=== PATIENT | female | born 1960 | race Caucasian/White ===

== ENCOUNTER 2017-06-25 08:50 | Outpatient (CLI) | payer BC ==
[2017-06-25 10:25] LABS: Hematocrit 39.3 % (36.0-47.0); Mean Platelet Volume 7.9 fL (7.4-10.4); Red Blood Cell (RBC) Count 3.91 mill/uL (4.20-5.40); White Blood Cell (WBC) Count 8.8 thou/uL (4.8-10.8)
[2017-06-25 10:43] LABS: Anion Gap 11 mmol/L (10-20); BUN (Urea Nitrogen) 18 mg/dL (9.8-20.1); Calc. Creatinine Clearance 0 mL/min (70-130); Calcium 9.5 mg/dL (7.8-10.44); Carbon Dioxide 30 mmol/L (22-29); Chloride 104 mmol/L (98-107); Estimated GFR-MDRD 78
--- NOTE | 2017-06-25 14:49 | EKG ---
Test Reason : Blood Pressure : / mmHG Vent. Rate : 061 BPM Atrial Rate : 061 BPM P-R Int : 132 ms QRS Dur : 084 ms QT Int : 436 ms P-R-T Axes : 081 089 083 degrees QTc Int : 438 ms Normal sinus rhythm Nonspecific ST and T wave abnormality Abnormal ECG Confirmed by MILI NG ([id number]) on 06/25/2017 2:49:01 PM Referred By: Eyad CUENCA Confirmed By:MILI NG
== END 2017-06-25 08:51 | disposition home or self-care (01) ==
LOC: LABBT 08:50
PROVIDERS: ATTEND Urology
DX: Z01.818 Encounter for other preprocedural examination (principal); N20.0 Calculus of kidney
CPT/HCPCS: 80048; 85027; 93005; 93010

== ENCOUNTER 2017-07-01 06:05 | Day surgery (SDC) | payer BC ==
[2017-06-25 09:28] VITALS: BMI 20.5
[2017-07-01] MEDS ORDERED: Fentanyl 100 MCG/2 ML VIAL ONE ×2 (06:53)
[2017-07-01] MEDS ORDERED: Midazolam HCl 2 mg/2 ml Vial ONE (06:53)
[2017-07-01] MEDS ORDERED: Promethazine HCl 25 MG/ML VIAL ONE (06:53)
[2017-07-01] MEDS ORDERED: Sodium Chloride 0.9% 100 ML ONE (07:07)
[2017-07-01] MEDS ORDERED: Iothalamate Meglumine 60% 50 ML VIAL FS ONE (07:07)
[2017-07-01] MEDS ORDERED: CEFAZOLIN 1 GM VIAL ONE ×2 (07:07→14:13)
[2017-07-01] MEDS ORDERED: Phenylephrine 10 MG/NS 250 ML 0 ML ONE (07:24)
[2017-07-01] MEDS ORDERED: Phenazopyridine HCl 97.5 MG TABLET ONE (09:35)
[2017-07-01] MEDS ORDERED: Oxybutynin 5 MG TAB ONE (09:35)
--- NOTE | 2017-07-01 13:46 | OP ---
DATE OF PROCEDURE: 07/01/2017 PREOPERATIVE DIAGNOSIS: Left ureteral and renal stones. POSTOPERATIVE DIAGNOSIS: Left ureteral and renal stones. PROCEDURES PERFORMED: Cystoscopy, left retrograde pyelogram, left ureteroscopy , left renal pyeloscopy, holmium laser lithotripsy, stone basketing and manipulation and removal, stent placement 6 x 22 double-J with string. SURGEON: Tessa Woodruff M.D. ANESTHESIA: General and LMA. SPECIMENS: Urine from the left renal pelvis as well as ureteral stone and renal stone. COMPLICATIONS: No complications. DRAIN REMAININ x 22 double-J with string. ESTIMATED BLOOD LOSS: None. INDICATIONS: The patient is a 57-year-old female who is followed in the office for stone disease and noted to have an obstructing left ureteral stone that did not make any progress, so she was set up for both ureteroscopy and shockwave lithotripsy; however, the ESWL machine was not available, so we proceeded with just ureteroscopy and renal pyeloscopy given the chronicity of obstruction. PROCEDURE IN DETAIL: The patient was brought into the room, anesthesia was then given. She was placed in supine position after achieving general anesthetic. Legs placed in lithotomy position with the left leg lower than the right leg elevated. She was prepped and draped in sterile fashion. Using a 21 Swazi cystoscope and 30-degree lens, it was traversed and the bladder inspected. Left ureteral orifice was intubated and a retrograde pyelogram performed revealing a filling defect in the lower proximal or upper mid ureter and the Pollack catheter would not advance beyond this so a regular wire was used to go beyond this area where it was then placed into the renal pelvis. The Pollack catheter could be advanced beyond the stone at this time and into the renal pelvis where the stone was removed and approximately 15 mL of clear urine was extracted and sent for specimen. Measurements were taken for a 6 x 22 stent was used, these were bent, then the wire was replaced and a dilating balloon was used, 6 cm 15 Swazi and dilated the ureteral orifice to measure 12 mmHg and then it was removed leaving the wire in place and coiling it. Then another stiff wire was placed via cystoscopy and then again the scope was broken apart, bladder drained and removed, keeping the stiff wire in, regular wire in place and then the rigid ureteroscope was placed over the stiff wire for aide in guidance up to the stone. At first, there was significant edema and I was concerned that I would not be able to pass this region without significant trauma, but with gentle manipulation and careful persistence the area of edema was then passed and up into the proximal ureter where there was normal tissue and no obvious stone so I retracted the scope partially and was able to find the stone. At this point, holmium laser lithotripsy was used to bust it up in multiple fragments, all of which were then removed in total and sent for specimen. Then, I switched over to the flexible ureteroscope and was able to get into the renal pelvis itself and attempted to go in any calices, there were only 2 that I could enter and 2 small fragments were extracted, 1 I just dropped in the ureter and then returned to the renal pelvis and the second I removed in its entirety. I was aware of a 5-6 mm stone that I did not see despite my investigation so this is likely a stone that was left remaining in the kidney itself. At this point, the flexible ureteroscope was removed in its entirety and the cystoscope was back fed over the wire after the stiff wire had been removed originally and then a 6 x 22 double-J stent was placed over the wire with good coil visualized in the renal pelvis via fluoroscopy and a good coil visualized in the bladder via cystoscopy. Scope was broken apart, bladder drained and removed carefully leaving the string intact, which was then coiled and secured to the patient's inner thigh. The patient tolerated procedure well and was then awakened and transferred to the PACU in stable condition. JESUSITA
[2017-07-01] MEDS ORDERED: Ondansetron HCl/PF 4 MG/2 ML Vial ONE (14:13)
[2017-07-01] MEDS ORDERED: ePHEDrine/0.9% NaCl/PF SYRINGE 50 mg/10 ml ONE (14:13)
[2017-07-01] MEDS ORDERED: Propofol 200 MG/20 ML VIAL ONE (14:13)
[2017-07-01] MEDS ORDERED: PHENYLEPHRINE-NS 100 MCG/ML 10 ML SYRINGE ONE (14:13)
[2017-07-01] MEDS ORDERED: Dexamethasone 20 MG/5 ML VIAL ONE (14:13)
[2017-07-01] MEDS ORDERED: Lidocaine 1% PF 5 ML VIAL ONE (14:13)
== END 2017-07-01 10:57 | disposition home or self-care (01) ==
LOC: SDC 06:05 → EEVIPCON 08:30 → SDC 10:57
PROVIDERS: ATTEND Urology
PROC: 0TF48ZZ Fragmentation in Left Kidney Pelvis, Via Natural or Artificial Opening Endoscopic (ICD-10-PCS; principal; 2017-07-01)
PROC: 0T778DZ Dilation of Left Ureter with Intraluminal Device, Via Natural or Artificial Opening Endoscopic (ICD-10-PCS; principal; 2017-07-01)
DX: N20.2 Calculus of kidney with calculus of ureter (principal); Z79.899 Other long term (current) drug therapy; Z90.49 Acquired absence of other specified parts of digestive tract; Z90.710 Acquired absence of both cervix and uterus; Z98.890 Other specified postprocedural states; Z85.038 Personal history of other malignant neoplasm of large intestine; Z87.442 Personal history of urinary calculi; Z84.1 Family history of disorders of kidney and ureter; Z82.49 Family history of ischemic heart disease and other diseases of the circulatory system
CPT/HCPCS: 76000; 82365; 87070; 87205; 88300; C1758; J0690; J1100; J2001; J2250; J2405; J2550; J2704; J3010; J7050; Q9961

== ENCOUNTER 2018-06-01 10:31 | Outpatient (CLI) | payer BC ==
--- NOTE | 2018-06-01 11:24 | RAD ---
ABDOMEN ONE VIEW: History: Follow up renal stones. FINDINGS: Several very small opacities noted over the region of the left kidney suspicious for renal calculi. P ost-surgical changes overlying the left mid and lateral abdomen. No evidence of bowel obstruction. No overt ureteral calculus. IMPRESSION: Several small left renal calculi. POS: C
== END 2018-06-01 10:32 | disposition home or self-care (01) ==
LOC: RAD 10:31
PROVIDERS: ATTEND Urology
DX: N20.0 Calculus of kidney (principal)
CPT/HCPCS: 74018

== ENCOUNTER 2018-06-18 11:22 | Outpatient (CLI) | payer BC ==
[2018-06-18 12:14] LABS: Hemoglobin 12.8 g/dL (12.0-16.0); Mean Corpuscular Hemoglobin 32.5 pg (27.0-31.0); Mean Corpuscular Volume 98.7 fL (78.0-98.0); Mean Platelet Volume 8.4 fL (7.4-10.4); Platelet Count 215 thou/uL (130-400); RBC Distribution Width 11.1 % (11.5-14.5); Red Blood Cell (RBC) Count 3.94 mill/uL (4.20-5.40); White Blood Cell (WBC) Count 7.4 thou/uL (4.8-10.8)
[2018-06-18 12:34] LABS: Anion Gap 12 mmol/L (10-20); BUN (Urea Nitrogen) 12 mg/dL (9.8-20.1); Calc. Creatinine Clearance 0 mL/min (70-130); Calcium 9.4 mg/dL (7.8-10.44); Carbon Dioxide 27 mmol/L (22-29); Chloride 106 mmol/L (98-107); Estimated GFR-MDRD 72; Glucose 106 mg/dL (70-105); Potassium 3.4 mmol/L (3.5-5.1); Sodium 142 mmol/L (136-145)
== END 2018-06-18 11:23 | disposition home or self-care (01) ==
LOC: LABBT 11:22
PROVIDERS: ATTEND Urology
DX: Z01.818 Encounter for other preprocedural examination (principal); N20.0 Calculus of kidney; E72.53 Primary hyperoxaluria
CPT/HCPCS: 80048; 81001; 85027; 93005; 93010

== ENCOUNTER 2018-06-19 12:46 | Outpatient (CLI) | payer BC ==
--- NOTE | 2018-06-19 15:56 | CT ---
CT ABDOMEN AND PELVIS WITHOUT CONTRAST 06/19/18 COMPARISON: 01/26/14. HISTORY: Left flank pain. History of kidney stones. TECHNIQUE: Multiple contiguous axial images were obtained in a CT of the abdomen and pelvis without contrast. Co kim reformats were performed. FINDINGS: There is a 4 mm calcification in the proximal aspect of the left ureter with severe left hydronephros is. Other nonobstructing calcifications are seen in the left kidney. No right sided hydronephrosis or right renal calcifications are seen. The liver, gallbladder, adrenal glands, spleen, and pancreas are unremarkable. No free air, free flui d or stranding changes are seen in the abdomen or pelvis. The uterus appears to have been removed. The patient may still have a right ovary in the right aspect of the pelvis. The large and small bowel are unremarkable. the appendix is not definitely seen. Degenerative changes are seen in the spine. The visualized inferior thorax and abdominal wall soft ti ssues are unremarkable. IMPRESSION: 1. Proximal left ureteral calcification with severe left hydronephrosis. 2. Nonobstructing additional left renal calcifications. POS: FLAQUITO
== END 2018-06-19 12:47 | disposition home or self-care (01) ==
LOC: SCSCT 12:46
PROVIDERS: ATTEND Urology
DX: N23 Unspecified renal colic (principal); N28.89 Other specified disorders of kidney and ureter; N13.30 Unspecified hydronephrosis
CPT/HCPCS: 74176

== ENCOUNTER 2018-06-23 09:11 | Day surgery (SDC) | payer BC ==
[2018-06-18 11:39] VITALS: BMI 22.2
[2018-06-23] MEDS ORDERED: CEFAZOLIN/Water 2 GM/20 ML SYRINGE ONE (10:22)
--- NOTE | 2018-06-23 11:27 | RAD ---
ABDOMEN ONE VIEW: HISTORY: Abdominal pain. Renal calculi. COMPARISON: Stone protocol CT from 06/19/2018. FINDINGS: There are multiple left-sided renal calculi. The previously noted left ureteral calculus is not defi nitively seen. IMPRESSION: Left-sided renal calculi without definite ureteral calculus. POS: FLAQUITO
[2018-06-23] MEDS ORDERED: Midazolam HCl 2 mg/2 ml Vial ONE (11:36)
[2018-06-23] MEDS ORDERED: Fentanyl 100 MCG/2 ML VIAL ONE (11:36)
[2018-06-23] MEDS ORDERED: Iothalamate Meglumine 60% 50 ML VIAL FS ONE (12:02)
[2018-06-23] MEDS ORDERED: Furosemide 20 MG/2 ML VIAL ONE (13:12)
[2018-06-23 13:16] LABS: Bilirubin Negative (Negative); Blood, Urine Large (Negative); Clarity CLOUDY (Clear); Glucose, Urine (Dipstick) Negative (Negative); Leukocyte Negative (Negative); Nitrite Negative (Negative); Protein, Urine (Dipstick) Negative (Neg-Trace); Specific Gravity, Urine 1.011 (1.002-1.036); Urobilinogen 0.2 mg/dL (0.2-1.0)
[2018-06-23 13:19] LABS: Bacteria/HPF None Seen HPF (None Seen); Hyaline Casts/LPF 4-6 HYALINE CAST LPF (0-3 Hyaline); Pathc Cast-AUWi Flag 1.01 (0-2.49); RBC/HPF GREATER THAN 50-TNTC HPF (0-3); Squamous Epithelial 0-3 HPF (0-3)
[2018-06-23] MEDS ORDERED: Acetaminophen/Codeine 30-300mg Tablet ONE (14:48)
[2018-06-23] MEDS ORDERED: ePHEDrine/0.9% NaCl/PF SYRINGE 50 mg/10 ml ONE ×2 (16:23)
[2018-06-23] MEDS ORDERED: Ondansetron HCl/PF 4 MG/2 ML Vial ONE (16:23)
[2018-06-23] MEDS ORDERED: Dexamethasone 20 MG/5 ML VIAL ONE (16:23)
[2018-06-23] MEDS ORDERED: PROPOFOL 200 MG/20 ML VIAL ONE (16:23)
[2018-06-23] MEDS ORDERED: Lidocaine 1% PF 5 ML VIAL ONE (16:23)
--- NOTE | 2018-06-24 07:53 | OP ---
DATE OF SERVICE: 06/23/2018 PREOPERATIVE DIAGNOSES: Left ureteral and left renal stones. POSTOPERATIVE DIAGNOSES: Left ureteral and left renal stones. PROCEDURES: Cystoscopy, left ureteroscopy, stone basketing, stent placement, 6 x 26 double-J with a string and left extracorporal shockwave lithotripsy. SURGEON: Tessa Woodruff M.D. ANESTHESIA: General with mask airway. FINDINGS: Adequate removal of the soft mid ureteral stone and adequate fragmentation of two renal stones in the superior and mid portion of the left kidney. No complications, no blood loss. Drain remaining was 6 x 26 internal double-J with string. SPECIMENS: Stone from the ureter and urine from the left renal pelvis. The patient is a 58-year-old female with stones for a significant amount of period and ultimately had left-sided renal colic. The KUB did not show a mid ureteral stone, but a CT scan did with significant hydro and two other stones in the kidney, so she was set up for ureteroscopy and ESWL. PROCEDURE IN DETAIL: The patient was brought to the room by Anesthesia, laid down on the table in a supine position. After receiving general anesthetic, her legs were placed in lithotomy position with the left lowered and right elevated. She was prepped and draped in sterile fashion. Using a 21-Libyan cystoscope 30-degree lens, the urethra was traversed and bladder inspected. No lesions are noted. The left ureteral orifice was intubated with a Pollack catheter and a wire. The wire was advanced beyond the stone. The Pollack catheter was advanced as well, noting resistance of the mid ureter where the stone was and the wire was removed; however, it appeared as though that the Pollack catheter that had only gone up to the proximal tortuous ureter, so the wire was placed again to ensure into the renal pelvis, where the Pollack catheter was then advanced and when the wires removed, good hydronephrotic drip was noted and so approximately 40 mL of yellow urine was extracted and sent for specimen. Measurements were taken for a 6 x 26 stent at the end. The wire was left in place and then a dilating balloon of 12 Libyan 6 cm was then used. It was blown up to a measure of 12 mmHg. Fluoroscopy confirmed an adequate insufflation and then this was taken down leaving the wire in place. Scope broken apart and removed in its entirety and then the rigid ureteroscope was used to go to the level of the mid ureter, where the stone was noted to already have been somewhat fragmented from the manipulations previously, so holmium was not needed. Three different specimens were removed with the basket and a final pass showed no concerning calcifications remaining and these were sent for specimen. Then, the wire was back fed over the cystoscope and a 6 x 26 double- J was placed with good coil visualized in the renal pelvis via fluoroscopy and a good coil visualized in the bladder via cystoscopy. Scope was broken apart, bladder drained and removed carefully as the string was still intact with the stent and secured to the patient's inner thigh. The patient was then transferred to the ESWL suite for treatment of renal stones. She was laid supine on the table and the extracorporeal shockwave lithotripsy was performed by the Dornier machine and a total of 2500 shocks at maximum power of 4/6 and a maximum rate of 60-90 per minute were then delivered. The first stone that was targeted within the superior pole measuring about 5 mm. A total of 1250 shocks were delivered. Then, we moved to identify the mid pole stone of similar size in a total of 250 shocks were delivered to the stone. Good fragmentation was noted. The patient was then awakened and transferred to PACU in stable condition. [facility] CENTERQuinten
== END 2018-06-23 15:35 | disposition home or self-care (01) ==
LOC: SDC 09:11
PROVIDERS: ATTEND Urology
PROC: 0TF7XZZ Fragmentation in Left Ureter, External Approach (ICD-10-PCS; principal; 2018-06-23)
PROC: 0TC78ZZ Extirpation of Matter from Left Ureter, Via Natural or Artificial Opening Endoscopic (ICD-10-PCS; principal; 2018-06-23)
PROC: 0T778DZ Dilation of Left Ureter with Intraluminal Device, Via Natural or Artificial Opening Endoscopic (ICD-10-PCS; principal; 2018-06-23)
DX: N20.2 Calculus of kidney with calculus of ureter (principal); E72.53 Primary hyperoxaluria; Z79.899 Other long term (current) drug therapy
CPT/HCPCS: 74018; 76000; 81001; 87070; 87205; C1758; C1769; J1100; J1940; J2001; J2250; J2405; J2704; J3010; Q9961

== ENCOUNTER 2018-07-21 08:25 | Outpatient (CLI) | payer BC ==
--- NOTE | 2018-07-21 09:19 | RAD ---
SINGLE VIEW OF THE ABDOMEN: Comparison: 06-23-18 History: Renal stone. FINDINGS: Single view of the abdomen shows a nonspecific, nonobstructed bowel gas pattern. Anastomotic staple l ine is seen in the left abdomen. There is no obvious calcifications seen projecting over either renal shadow or along the course of the ureters. IMPRESSION: Nonobstructed bowel gas pattern. POS: THAD
== END 2018-07-21 08:26 | disposition home or self-care (01) ==
LOC: RAD 08:25
PROVIDERS: ATTEND Urology
DX: N20.0 Calculus of kidney (principal)
CPT/HCPCS: 74018

== ENCOUNTER 2018-12-16 08:13 | Outpatient (CLI) | payer BC, OTHER ==
--- NOTE | 2018-12-16 09:31 | ULT ---
ULTRASOUND RETROPERITONEUM COMPLETE: (RENAL) HISTORY: A 58-year-old female with "renal colic". FINDINGS: Right kidney: 12.5 x 4.5 x 4.5 cm. Left kidney: 11.5 x 4.5 x 5 cm. No hydronephrosis of the right kidney. Mild to moderate dilation of the left extrarenal pelvis, with little or no dilation of the left calyc es. This represents dramatic interval improvement or resolution of the severe left hydronephrosis de monstrated on CT of 06/19/2018 and ultrasound of 11/14/2015. Multiple small echogenic foci at the left calyces, at least some of which probably represent calculi, as demonstrated on the prior CT. No such echogenic foci identified in the right kidney. Normal appearance of urinary bladder. Bilateral ureteral jets are demonstrated within the urinary bl adder. IMPRESSION: 1. Dilated left extrarenal pelvis. 2. Complete or almost complete resolution of the previously demonstrated severe left hydronephrosis. 3. Left nephrolithiasis. 4. Unremarkable right kidney. ELPIDIO Demarco POS: [facility]
== END 2018-12-16 08:14 | disposition home or self-care (01) ==
LOC: BICULT 08:13
PROVIDERS: ATTEND Urology
DX: N23 Unspecified renal colic (principal); N13.2 Hydronephrosis with renal and ureteral calculous obstruction; N28.89 Other specified disorders of kidney and ureter
CPT/HCPCS: 76770

== ENCOUNTER 2023-06-26 13:46 | Outpatient (CLI) | payer BC | END 2023-06-26 13:47 | disposition home or self-care (01) | LOC: BICCT 13:46 | PROVIDERS: ATTEND Family Medicine | DX: R51.9 Headache, unspecified (principal) | CPT/HCPCS: 70470; 82565 ==